=== PATIENT | female | born 1945 | race Caucasian/White ===

== ENCOUNTER 2016-04-08 00:57 | Emergency (ER) | payer OTHER ==
[2016-04-08] MEDS ORDERED: NS 1,000 ML IV ONE (01:49)
[2016-04-08] MEDS ORDERED: ONDANSETRON 4 MG/2 ML VIAL IVP ONE (01:50)
[2016-04-08 01:54] LABS: % IMMATURE GRANULYOCYTES 0.2 % (0.0-1.1); ABSOLUTE IMMATURE GRANULOCYTES 0.01 10^3/uL (0.00-0.10); ADD DIFF? NO; ADD MORPH? NO; ADD SCAN? NO; ATYPICAL LYMPHOCYTE FLAG 0 (0-99); FRAGMENT RBC FLAG 0 (0-99); HEMATOCRIT 38.2 % (38.0-47.0); HEMOGLOBIN 12.6 g/dL (12.6-16.3); LEFT SHIFT FLG 0 (0-99); LIPEMIA HEMOLYSIS FLAG 80 (0-99); MEAN CELL HEMOGLOBIN 29.3 pg (27.9-34.1); MEAN CELL VOLUME 88.8 fL (81.5-99.8); MEAN PLATELET VOLUME 10.2 fL (8.7-11.7); PLATELET CLUMPS FLAG 0 (0-99); PLATELET COUNT 289 10^3/uL (150-400); RED CELL DISTRIBUTION WIDTH 13.4 % (11.5-15.2)
--- NOTE | 2016-04-08 01:54 | EDPHY ---
H & P Stated Complaint: adb pain, constiaption, lightheaded Source: Patient Exam Limitations: No limitations - Personal History Tetanus Vaccine Date: 2014 - Medical/Surgical History Hx Asthma: No Hx Chronic Respiratory Disease: No Hx Diabetes: No Hx Cardiac Disease: No Hx Renal Disease: No Hx Cirrhosis: No Hx Alcoholism: No Hx HIV/AIDS: No Hx Splenectomy or Spleen Trauma: No Other PMH: hx meningitis x3 (last 1999), degenerative arthritis with chronic leg and back pain/PLEURISY - Social History Smoking Status: Never smoked HPI/ROS: CHIEF COMPLAINT: Abdominal pain, constipation HISTORY OF PRESENT ILLNESS: right lower quadrant abdominal pain and constipation since yesterday morning. She has had no bowel movement in greater than 2 days. It is a moderate to severe pain in the right lower quadrant has constantly worsened. She has attempted [id number] fiber and laxatives without any improvement. She has been straining heavily for this. Nausea but no vomiting. No fever or chills. No chest pain or shortness of breath. No coughing or shortness of breath. No blood from any stools recently. No history of constipation, but she does take iron pills daily per her primary care physician. No other associated complaints or modifying factors. PREVIOUS ABDOMINAL SURGERIES/DIAGNOSES: None NPO: liquids 7:00 p.m. REVIEW OF SYSTEMS: Ten systems reviewed and are negative unless otherwise noted in the HPI EXAMINATION: General Appearance: Alert, no distress Head: normocephalic, atraumatic Eyes: Pupils equal and round, no conjunctival pallor or injection ENT, Mouth: Mucous membranes moist. Uvula midline. No lesions or edema Neck: Normal inspection, supple, non-tender Respiratory: Lungs are clear to auscultation. No wheezing, rhonchi or crackles Cardiovascular: Regular rate and rhythm no murmur. Pulses intact distally. Gastrointestinal: Abdomen is soft . Moderate tenderness in the right lower quadrant. No tympany or rigidity. Bowel sounds are decreased in all quadrants. Neurological: A&O, nonfocal, Strength is symmetric in all limbs. Skin: Warm and dry, no rash Extremities: Nontender, no pedal edema Psychiatric: Mood and affect normal DIFFERENTIAL DIAGNOSES: Including but not limited to Constipation, fecal impaction, volvulus, diverticulitis, colitis, enteritis MDM: 1:50 a.m. abdominal pain and constipation since yesterday morning. She does have right lower quadrant abdominal pain is very tender to palpation on examination. I have ordered an I-STAT that we can obtain a CT scan of the abdomen and pelvis to delineate if this is more than just constipation. Patient is comfortable with this plan, hemodynamically stable, and in no acute distress. 2:35 a.m. laboratory studies thus far are normal. CT scan has not yet been performed. I have discussed the case with Dr. Ferrer, and she will assume care the patient at this time. Please see her note for final disposition. SUPERVISION: Patient was evaluated in conjunction with the supervising physician. Please see their note for details. (Daryl Snell) Constitutional: Initial Vital Signs Temperature (C) 36.3 C 04/08/16 01:02 Heart Rate 72 04/08/16 01:02 Respiratory Rate 20 04/08/16 01:02 Blood Pressure 144/61 H 04/08/16 01:02 O2 Sat (%) 99 04/08/16 01:02 O2 Delivery Mode Room Air Allergies/Adverse Reactions: Penicillins Allergy (Intermediate, Verified 04/08/16 01:02) Other-Enter Comments Home Medications: Medication Instructions Recorded Amitriptyline HCl [Elavil] 25 mg PO HS 10/14/13 Aspirin [Aspirin 81mg (*)] 81 mg PO DAILY 10/14/13 Cholecalciferol Vit D3 [Vitamin D3 1,000 units PO DAILY 10/14/13 (*)] Hydrocodone/APAP 5/325 [[place] 1 - 2 each PO Q6 PRN #20 tab 01/07/15 5/325] Ondansetron Odt [Zofran Odt] 4 mg PO Q4PRN PRN #20 tab 01/07/15 Medical Decision Making ED Course/Re-evaluation: PHYSICIAN DOCUMENTATION: The patient was evaluated and managed by the Physician Virtual Assistant For [employer]. My co- signature indicates that I have reviewed this chart and I agree with the findings and plan of care as documented. I am the secondary supervising physician. CT abdomen pelvis: Marked constipation w/ fecalization of distal ileum No appendicitis, FF, abscess, or localized stranding Query celiac sprue, abnormal jejunum w/ loss of folds, wall thickening, and increased intraluminal fluid No hydro or stones Discussed with Dr. French of Radiology. 5:00 a.m.- The patient received an enema without any stool output. Thus, I went to the bedside to attempt disimpaction, however there is no stool in the rectal vault. Because of the patient's ongoing symptoms of abdominal pain, I will treat her with magnesium citrate and GoLYTELY and I will reassess her. 6:00 a.m.- The patient had a small bowel movement is actually feeling much better. Her abdominal exam has improved and she has no further tenderness. She would like to be discharged home. We will send her home with the GoLYTELY and she says that she would like to try some enemas as well. She is to return to the emergency room if she is worse in any way. (Hannah Ferrer) - Data Points Laboratory Results: Laboratory Results 04/08/16 01:40 04/08/16 01:40 04/08/16 04/08/16 04/08/16 01:40 01:40 01:40 WBC 6.65 10^3/uL 10^3/uL (3.80-9.50) RBC 4.30 10^6/uL 10^6/uL (4.18-5.33) Hgb 12.6 g/dL g/dL (12.6-16.3) Hct 38.2 % % (38.0-47.0) MCV 88.8 fL fL (81.5-99.8) MCH 29.3 pg pg (27.9-34.1) MCHC 33.0 g/dL g/dL (32.4-36.7) RDW 13.4 % % (11.5-15.2) Plt Count 289 10^3/uL 10^3/uL (150-400) MPV 10.2 fL fL (8.7-11.7) Neut % (Auto) 42.6 % % (39.3-74.2) Lymph % (Auto) 44.1 % % (15.0-45.0) [place] % (Auto) 9.2 % % (4.5-13.0) Eos % (Auto) 3.3 % % (0.6-7.6) Baso % (Auto) 0.6 % % (0.3-1.7) Nucleat RBC Rel Count 0.0 % % (0.0-0.2) Absolute Neuts (auto) 2.84 10^3/uL 10^3/uL (1.70-6.50) Absolute Lymphs (auto) 2.93 10^3/uL 10^3/uL (1.00-3.00) Absolute Monos (auto) 0.61 10^3/uL 10^3/uL (0.30-0.80) Absolute Eos (auto) 0.22 10^3/uL 10^3/uL (0.03-0.40) Absolute Basos (auto) 0.04 10^3/uL 10^3/uL (0.02-0.10) Absolute Nucleated RBC 0.00 10^3/uL 10^3/uL (0-0.01) Immature Gran % 0.2 % % (0.0-1.1) Immature Gran # 0.01 10^3/uL 10^3/uL (0.00-0.10) PT 12.4 SEC SEC (12.0-15.0) INR 0.93 (0.83-1.16) APTT 26.6 SEC SEC (23.0-38.0) Sodium 138 mEq/L mEq/L (134-144) Potassium 4.0 mEq/L mEq/L (3.5-5.2) Chloride 105 mEq/L mEq/L (97-110) Carbon Dioxide 24 mEq/l mEq/l (22-31) Anion Gap 9 mEq/L mEq/L (8-16) BUN 18 mg/dL mg/dL (7-23) Creatinine 0.8 mg/dL mg/dL (0.6-1.0) Estimated GFR > 60 Glucose 94 mg/dL mg/dL (70-100) Calcium 9.7 mg/dL mg/dL (8.5-10.4) Total Bilirubin 0.6 mg/dL mg/dL (0.1-1.4) Conjugated Bilirubin 0.5 mg/dL mg/dL (0.0-0.5) Unconjugated Bilirubin 0.1 mg/dL mg/dL (0.0-1.1) AST 26 IU/L IU/L (14-46) ALT 26 IU/L IU/L (9-52) Alkaline Phosphatase 163 IU/L H IU/L (38-126) Total Protein 7.1 g/dL g/dL (6.3-8.2) Albumin 4.3 g/dL g/dL (3.5-5.0) Lipase 185.0 IU/L IU/L (23-300) Medications Given: Discontinued Medications Fentanyl (Sublimaze) 50 mcg IVP EDNOW ONE Stop: 04/08/16 03:31 Last Admin: 04/08/16 06:00 Dose: Not Given Sodium Chloride (Ns) 1,000 mls @ 0 mls/hr IV ONCE ONE PRN Reason: Wide Open Stop: 04/08/16 01:50 Last Admin: 04/08/16 02:11 Dose: 1,000 mls Magnesium Citrate (Magnesium Citrate) 300 ml PO ONCE ONE Stop: 04/08/16 03:52 Last Admin: 04/08/16 03:59 Dose: 300 ml Morphine Sulfate (Morphine) 4 mg IVP EDNOW ONE Stop: 04/08/16 01:51 Last Admin: 04/08/16 02:12 Dose: 4 mg Ondansetron HCl (Zofran) 4 mg IVP EDNOW ONE Stop: 04/08/16 01:51 Last Admin: 04/08/16 02:12 Dose: 4 mg Polyethylene Glycol/Electrolytes (Golytely) 4,000 ml PO ONCE ONE Stop: 04/08/16 03:52 Last Admin: 04/08/16 04:00 Dose: 4,000 ml Departure - Departure Disposition: Home, Routine, Self-Care Clinical Impression: Abdominal pain Qualifiers: Abdominal location: right lower quadrant Qualified Code(s): R10.31 - Right lower quadrant pain Constipation Qualifiers: Constipation type: drug induced constipation Qualified Code(s): K59.03 - Drug induced constipation Condition: Good Instructions: Constipation (ED), Fleet Enema (ED) Referrals: Anne Abad MD [Primary Care Provider] - As per Instructions
[2016-04-08] MEDS ORDERED: IOPAMIDOL (ISOVUE-300) 100 ML BTL IV ONE (02:05)
[2016-04-08 02:11] LABS: ALANINE AMINOTRANSFERASE 26 IU/L (9-52); ALBUMIN 4.3 g/dL (3.5-5.0); ALKALINE PHOSPHATASE 163 IU/L (38-126); ANION GAP 9 mEq/L (8-16); ASPARTATE AMINOTRANSFERASE 26 IU/L (14-46); BILIRUBIN,TOTAL 0.6 mg/dL (0.1-1.4); BILIRUBIN-CONJUGATED 0.5 mg/dL (0.0-0.5); BILIRUBIN-UNCONJUGATED 0.1 mg/dL (0.0-1.1); CALCIUM 9.7 mg/dL (8.5-10.4); CARBON DIOXIDE 24 mEq/l (22-31); CHLORIDE 105 mEq/L (97-110); CREATININE 0.8 mg/dL (0.6-1.0); GLOMERULAR FILTRATION RATE > 60; GLUCOSE 94 mg/dL (70-100); SODIUM 138 mEq/L (134-144); TOTAL PROTEIN 7.1 g/dL (6.3-8.2)
[2016-04-08 02:29] LABS: INR 0.93 (0.83-1.16); PROTIME(PATIENT) 12.4 SEC (12.0-15.0)
[2016-04-08 02:30] LABS: APTT 26.6 SEC (23.0-38.0)
[2016-04-08] MEDS ORDERED: fentaNYL 100 MCG/2 ML INJ IVP ONE (03:30)
[2016-04-08] MEDS ORDERED: MAGNESIUM CITRATE 300 ML BOTTLE ONE (03:51)
[2016-04-08] MEDS ORDERED: GOLYTELY 4000 ML BTL PO ONE (03:51)
[2016-04-08] MEDS ORDERED: MAGNESIUM CITRATE 300 ML BOTTLE PO ONE (03:51)
[2016-04-08 04:01] VITALS: RESP 16
[2016-04-08 06:16] VITALS: BP 126/71; PULSE 73; TEMP 98.6; O2SAT 95
== END 2016-04-08 06:14 | disposition home or self-care (01) ==
DX: K59.03 Drug induced constipation (principal); Z79.82 Long term (current) use of aspirin
CPT/HCPCS: 74177; 96361; 96374; 96375; 99285; J2405; J3010; Q9967

== ENCOUNTER 2016-09-10 16:07 | Emergency (ER) | payer OTHER ==
[2016-09-10 16:24] VITALS: TEMP 98.6
[2016-09-10] MEDS ORDERED: IPRATROPIUM/ALBUTEROL 3 ML DEYVIAL IH ONE (18:13)
--- NOTE | 2016-09-10 18:15 | EDPHY ---
HPI/HX/ROS/PE/MDM Narrative: CHIEF COMPLAINT: Cough HPI: This patient is a 70 year old female arriving with her son complaining of cough and headache onset yesterday. She has had a productive cough with associated chest pain. She states she has been wheezing, but no longer has her Albuterol inhaler. She endorses subjective fever. No abdominal pain, vomiting, diarrhea, or other associated symptoms. REVIEW OF SYSTEMS: Aside from elements discussed in the HPI, a comprehensive 10-point review of systems was reviewed and is negative. PMH: Asthma. Anemia. SOCIAL HISTORY: Son at bedside. Primary care provider: Dr. Abad. PHYSICAL EXAM: General:Patient is alert, in no acute distress. ENT:Eyes are normal to inspection. ENT inspection normal. Neck: Normal inspection. Full range of motion. Respiratory:No respiratory distress. Breath sounds normal bilaterally. Cardiovascular: Regular rate and rhythm. Strong peripheral pulses. Normal cap refill. Abdomen:The abdomen is nontender to palpation. There are no peritoneal signs. There are normal bowel sounds. Back: Normal to inspection. No tenderness to palpation. Skin: Normal color. No rash. Warm and dry. Extremities: Normal appearance. Full range of motion. Neuro: Oriented x3. Normal motor function. Normal sensory function. Portions of this note were transcribed by an ED scribe. I personally performed the history, physical exam, and medical decision making; and confirm the accuracy of the information in the transcribed note. ED Course: 70 year old female presents with productive cough and headache onset yesterday. Administered DuoNeb for symptom relief. Plan for chest x-ray, respiratory pathogen PCR. Chest x-ray shows evidence of bronchitis, no pneumonia. Reassessed patient. She is feeling better following DuoNeb administration. Plan to discharge home in good condition with prescription for Albuterol inhaler. She will follow up with her primary care provider for continued management. Return precautions discussed. The patient is comfortable with this plan. MDM: This patient presents with mild cough and wheeze. She is not febrile nor hypoxic. CXR is negative for PNA. She is requesting an inhaler and would like to go home. I think this is a reasonable plan. - Data Points Imaging Results: Imaging Impressions Chest X-Ray 09/10/16 17:40 Impression: 1. Bronchitis/airways disease. 2. No definite pneumonia. Imaging: I viewed and interpreted images myself Medications Given: Discontinued Medications Albuterol/Ipratropium (Duoneb) 3 ml IH EDNOW ONE Stop: 09/10/16 18:14 Last Admin: 09/10/16 18:31 Dose: 3 ml General Time Seen by Provider: 09/10/16 17:35 Initial Vital Signs: Initial Vital Signs Temperature (C) 37 C 09/10/16 16:19 Heart Rate 101 H 09/10/16 16:19 Respiratory Rate 18 09/10/16 16:19 Blood Pressure 131/54 H 09/10/16 16:19 O2 Sat (%) 95 09/10/16 16:19 O2 Delivery Mode Room Air Allergies/Adverse Reactions: Penicillins Allergy (Intermediate, Verified 09/10/16 16:19) Other-Enter Comments Home Medications: Medication Instructions Recorded Amitriptyline HCl [Elavil] 25 mg PO HS 10/14/13 Aspirin [Aspirin 81mg (*)] 81 mg PO DAILY 10/14/13 Departure - Departure Disposition: Home, Routine, Self-Care Clinical Impression: Acute bronchitis Condition: Good Instructions: Acute Bronchitis (ED) Additional Instructions: 1. Follow up with your primary care provider for symptoms unresolved in the next few days. 2. Return to the Emergency Department for fever, increased difficulty breathing , or other worsening of condition. Referrals: Anne Abad MD [Primary Care Provider] - As per Instructions Report Scribed for: Elieser Rios Report Scribed by: Esperanza Rausch Date of Report: 09/10/16 Time of Report: 19:47
[2016-09-10] MEDS ORDERED: ALBUTEROL INH PREPACK MDI TAKEHOME ONE (19:26)
[2016-09-10] MEDS ORDERED: IBUPROFEN 200 MG TAB PO ONE (19:27)
[2016-09-10 19:58] VITALS: BP 132/62; PULSE 88; RESP 20; O2SAT 94
== END 2016-09-10 19:58 | disposition home or self-care (01) ==
DX: J20.9 Acute bronchitis, unspecified (principal); J45.909 Unspecified asthma, uncomplicated

== ENCOUNTER → 2016-10-18 | Outpatient (CLI) | payer OTHER | LOC: GIMAGING 13:50 | PROVIDERS: ATTEND Family Medicine | DX: M54.9 Dorsalgia, unspecified (principal); Z98.1 Arthrodesis status | CPT/HCPCS: 72100-PO ==

== ENCOUNTER → 2017-02-13 | Outpatient (CLI) | payer OTHER | LOC: FIMAGING 16:14 | PROVIDERS: ATTEND Family Medicine | DX: Z12.31 Encounter for screening mammogram for malignant neoplasm of breast (principal) | CPT/HCPCS: G0202 ==

== ENCOUNTER 2017-08-12 21:52 | Emergency (ER) | payer OTHER ==
--- NOTE | 2017-08-12 22:29 | EDPHY ---
H & P Stated Complaint: abd pain with constipation x 4 days Time Seen by Provider: 08/12/17 22:29 HPI/ROS: HPI CHIEF COMPLAINT: Constipation HISTORY OF PRESENT ILLNESS: Patient is a 71-year-old female she presents emergency room with abdominal discomfort rectal pain. Patient reports that she has not had a bowel movement 4 days. Patient reports that at times she does suffer from constipation. She has been trying to have a bowel movement for the past 4 days. She has used multiple enemas without success. She presents emergency room by private vehicle stating that she has been straining to use the bathroom but unable to do so. She denies any fever, denies vomiting, denies upper abdominal pain. She denies chest pain or shortness of breath. Past Medical History: Anxiety, constipation Past Surgical History: No recent surgical history Social History: Denies daily use of drugs alcohol tobacco. Family History: Noncontributory ROS REVIEW OF SYSTEMS: A comprehensive 10 point review of systems is otherwise negative aside from elements mentioned in the history of present illness. Exam Constitutional nontoxic appearing, no acute distress, triage nursing summary reviewed, vital signs reviewed, awake/alert. Eyes normal conjunctivae and sclera, EOMI, PERRLA. HENT normal inspection, atraumatic, moist mucus membranes, no epistaxis, neck supple/ no meningismus, no raccoon eyes. Respiratory clear to auscultation bilaterally, normal breath sounds, no respiratory distress, no wheezing. Cardiovascular rate normal, regular rhythm, no murmur, no edema, distal pulses normal. Gastrointestinal no significant tenderness on exam, no rebound, no guarding, hypoactive bowel sounds no distension, no pulsatile mass. Genitourinary no CVA tenderness. Musculoskeletal no midline vertebral tenderness, full range of motion, no calf swelling, no tenderness of extremities, no meningismus, good pulses, neurovascularly intact. Skin pink, warm, & dry, no rash, skin atraumatic. Neurologic awake, alert and oriented x 3, AAOx3, moves all 4 extremities equally, motor intact, sensory intact, CN II-XII intact, normal cerebellar, normal vision, normal speech. Psychiatric normal mood/affect. Heme/Lymph/Immune no lymphadenopathy. Differential diagnosis includes but is not limited to and in no particular order: Bowel obstruction, appendicitis, gallbladder disease, diverticulitis, colitis, enteritis, perforated viscus, gastritis, GERD, esophagitis, urinary tract infection, pyelonephritis, kidney stones Medical Decision Making: Plan for this patient KUB to evaluate bowel gas pattern and stool burden. If this shows significant constipation will attempt an enema here in the emergency room to see if this relieves her. Re-evaluation: KUB reviewed. This shows moderate constipation. No free air. No evidence of bowel gas obstructive process. 2311: Will give soapsuds enema and re-evaluate. 1242: Patient re-evaluated she was able to have a large bowel movement here in the emergency room is feeling much better this was after a soapsuds enema. Abdomen is soft nontender she is not vomiting she feels much better. Return precautions discussed with her she understands return emergency room she develops worsening abdominal pain fever vomiting. MiraLax prescription provided. Source: Patient - Personal History Current Tetanus/Diphtheria Vaccine: Yes Current Tetanus Diphtheria and Acellular Pertussis (TDAP): Yes Tetanus Vaccine Date: 2014 - Medical/Surgical History Hx Asthma: No Hx Chronic Respiratory Disease: Yes Hx Diabetes: No Hx Cardiac Disease: No Hx Renal Disease: No Hx Cirrhosis: No Hx Alcoholism: No Hx HIV/AIDS: No Hx Splenectomy or Spleen Trauma: No Other PMH: hx meningitis x3 (last 1999), degenerative arthritis with chronic leg and back pain/PLEURISY - Social History Smoking Status: Never smoked Constitutional: Initial Vital Signs Temperature (C) 36.4 C 08/12/17 21:59 Heart Rate 83 08/12/17 21:59 Respiratory Rate 18 08/12/17 21:59 Blood Pressure 117/89 H 08/12/17 21:59 O2 Sat (%) 100 08/12/17 21:59 O2 Delivery Mode Room Air Allergies/Adverse Reactions: Penicillins Allergy (Intermediate, Verified 09/10/16 16:19) Other-Enter Comments Home Medications: Medication Instructions Recorded Amitriptyline HCl [Elavil] 25 mg PO HS 10/14/13 Aspirin [Aspirin 81mg (*)] 81 mg PO DAILY 10/14/13 CLONAZEPAM 08/12/17 Polyethylene Glycol 3350 [Miralax 17 gm PO DAILY #4 pkt 08/13/17 17 gm (*)] Medical Decision Making - Diagnostics Imaging Results: Imaging Impressions Abdomen X-Ray 08/12/17 22:29 Impression: Moderate constipation. Departure - Departure Disposition: Home, Routine, Self-Care Clinical Impression: Constipation Qualifiers: Constipation type: unspecified constipation type Qualified Code(s): K59.00 - Constipation, unspecified Condition: Good Instructions: Constipation (ED) Additional Instructions: 1. Return emergency room if he develops worsening abdominal pain fever vomiting. Referrals: NONE *PRIMARY CARE P,. [Primary Care Provider] - As per Instructions Prescriptions: Polyethylene Glycol 3350 [Miralax 17 gm (*)] 17 gm PO DAILY #4 pkt
[2017-08-13 01:00] VITALS: BP 122/75
== END 2017-08-13 00:56 | disposition home or self-care (01) ==
DX: K59.00 Constipation, unspecified (principal); Z79.82 Long term (current) use of aspirin

== ENCOUNTER 2018-01-06 17:22 | Emergency (ER) | payer OTHER ==
[2018-01-06] MEDS ORDERED: NS 1,000 ML IV ONE (17:40)
[2018-01-06] MEDS ORDERED: ONDANSETRON 4 MG/2 ML VIAL IVP ONE (17:40)
--- NOTE | 2018-01-06 17:40 | EDPHY ---
HPI/HX/ROS/PE/MDM Narrative: CHIEF COMPLAINT: Dizziness, nausea HISTORY OF PRESENT ILLNESS: The patient is a 72 y/o female complaining of acute onset dizziness and nausea while sitting and drinking coffee today with her friend. She felt normal yesterday and denies any recent illness. Dizziness is aggravated by turning her head and opening her eyes. She says, "I thought maybe it could be vertigo because I've had that before." She denies any fall or trauma related to these symptoms. She does have a slight headache and feels mildly off balance. Symptoms do not feel like her prior meningitis episodes. No history of stroke, diabetes, cardiac disease, arrhythmias, respiratory disease, kidney disease. No fever, chills, cough, rhinorrhea, sore throat, ringing in ears, photophobia, chest pain, shortness of breath, palpitations, abdominal pain, vomiting, diarrhea, urinary complaints, lightheadedness. REVIEW OF SYSTEMS: Aside from elements discussed in the HPI, a comprehensive 10-point review of systems was reviewed and is negative. PAST MEDICAL HISTORY: Meningitis x3; back surgery; memory loss; C-sections x2 ; tonsillectomy SOCIAL HISTORY: Nonsmoker. No alcohol use. VITAL SIGNS: Reviewed by me GENERAL: Well-developed, well-nourished, resting comfortably in no respiratory distress. HEENT: Atraumatic. Eyes: No icterus, no injection. Extraocular movements aggravate dizziness. No nystagmus. Pupils equal round reactive to light. Mouth: moist mucous membranes. No erythema or lesions. Neck: supple with no adenopathy. Negative Kernig's. Negative Brudzinski's LUNGS: Clear to auscultation bilaterally, no wheezes, rhonchi or rales. CARDIAC: Regular rate and rhythm, no rubs, murmurs or gallops. ABDOMEN: Soft, nontender, nondistended, bowel sounds normal. BACK: No CVA tenderness. EXTREMITIES: No trauma. No edema. Range of motion is normal throughout. NEURO: Alert and oriented, grossly nonfocal. Cranial nerves 2-12 are intact. Normal motor strength. Normal sensation. Slight difficulty with [id number] , worse on left. Nonfocal cranial nerves. SKIN: Warm and dry, no rash. PSYCHIATRIC: Normal mentation, no agitation. Portions of this note were transcribed by a medical van driver. I personally performed a history, physical exam, medical decision making, and confirmed accuracy of information the transcribed note. ED Course: This is a 72 y/o female who presents with a few-hour history of acute onset dizziness and nausea that feels similar to her prior episodes of vertigo. Dizziness elicited by movement of her eyes during exam. She has slight difficulty with [id number], but otherwise has a nonfocal neuro exam. Plan for IV, labs, EKG, head CT, and symptomatic management. 4mg IV Zofran, 25mg PO Meclizine, 1L IV NS. The 12 lead EKG was interpreted by myself. Sinus mechanism. See hard copy and/ or "tracemaster" electronic copy for interpretation. Head CT: negative. POC troponin: 0.00. Remainder of the patient's laboratory evaluation is largely unremarkable. Patient re-examined at 7:00 p.m.. She reports that her dizziness is slightly better with the meclizine but her nausea still persistent. Her family is now in the room. They describe and admission several years ago for intractable vertigo at which time the patient had a brain MRI as well as CT A's. These were negative for any acute findings. On review of the records the patient was felt to have a vertiginous migraine and improved to with Decadron. Patient was given Valium 2.5 mg as well as Phenergan for persistent nausea. She also received Decadron 8 mg IV. Family also reports that the patient typically does not drink very much water, drinking only coffee. She did receive a L of normal saline and reports that she is feeling better with that. On re-examination the patient reports feeling improved. She was discharged with instructions regarding follow-up, reasons to return, and was given instructions to use meclizine on a regular basis for the next several days. I also encouraged her to drink plenty of fluid. MDM: Differential diagnosis of the patient's dizziness was considered including but not limited to peripheral and central causes of vertigo, cardiac arrhythmias, cardiac ischemia, electrolyte disturbances, neurologic causes, orthostatic causes including dehydration, and blood loss. - Data Points Imaging Results: Impression: 1. Stable normal brain. 2. Degenerative cervical spondylosis. Results called to Dr. Lorraine Gorman at 6:02 PM Imaging: Discussed imaging studies w/ house calls nurse practitioner Radiologist Laboratory Results: Laboratory Results 01/06/18 17:35 01/06/18 17:35 Medications Given: Discontinued Medications Dexamethasone (Decadron Injection) 6 mg IVP EDNOW ONE Stop: 01/06/18 19:10 Last Admin: 01/06/18 19:21 Dose: 6 mg Diazepam (Valium) 2.5 mg IVP EDNOW ONE Stop: 01/06/18 19:10 Last Admin: 01/06/18 19:24 Dose: 2.5 mg Sodium Chloride (Ns) 1,000 mls @ 0 mls/hr IV ONCE ONE; Wide Open PRN Reason: Protocol Stop: 01/06/18 17:41 Last Admin: 01/06/18 17:47 Dose: 1,000 mls Meclizine HCl (Meclizine Hcl) 25 mg PO EDNOW ONE Stop: 01/06/18 17:43 Last Admin: 01/06/18 17:45 Dose: 25 mg Ondansetron HCl (Zofran) 4 mg IVP EDNOW ONE Stop: 01/06/18 17:41 Last Admin: 01/06/18 17:45 Dose: 4 mg Promethazine HCl (Phenergan) 6.25 mg IVP ONCE ONE Stop: 01/06/18 19:10 Last Admin: 01/06/18 19:23 Dose: 6.25 mg Point of Care Test Results: Chemistry 01/06/18 17:42 POC Troponin I 0.00 ng/mL ng/mL (0.00-0.08) General Time Seen by Provider: 01/06/18 17:28 Initial Vital Signs: Initial Vital Signs Temperature (C) 36.8 C 01/06/18 17:23 Heart Rate 94 01/06/18 17:23 Respiratory Rate 16 01/06/18 17:23 Blood Pressure 157/68 H 01/06/18 17:23 O2 Sat (%) 96 01/06/18 17:23 O2 Delivery Mode Room Air Allergies/Adverse Reactions: Penicillins Allergy (Intermediate, Verified 09/10/16 16:19) Other-Enter Comments Home Medications: Medication Instructions Recorded Amitriptyline HCl [Elavil] 25 mg PO HS 10/14/13 Aspirin [Aspirin 81mg (*)] 81 mg PO DAILY 10/14/13 CLONAZEPAM 08/12/17 Polyethylene Glycol 3350 [Miralax 17 gm PO DAILY #4 pkt 08/13/17 17 gm (*)] Meclizine HCl [Meclizine HCl 25 mg 25 mg PO TID PRN #20 tab 01/06/18 (RX,OTC)] Departure - Departure Disposition: Home, Routine, Self-Care Clinical Impression: Vertigo, Dizziness Condition: Good Instructions: Vertigo (ED), Dizziness (ED) Additional Instructions: Please take the meclizine as directed. 25 mg by mouth up to 3 times a day. Please stay well-hydrated. This means drinking plenty of water and avoiding excessive coffee or other caffeine containing drinks. Okay to use Tylenol or ibuprofen as needed for headache. Please follow up with her primary care physician if you're not improving as expected. Referrals: Anne Abad MD [Primary Care Provider] - As per Instructions Prescriptions: Meclizine HCl [Meclizine HCl 25 mg (RX,OTC)] 25 mg PO TID PRN #20 tab PRN Reason: Dizziness Report Scribed for: Lorraine Gorman Report Scribed by: Mela Casillas Date of Report: 01/06/18 Time of Report: 17:40
[2018-01-06] MEDS ORDERED: MECLIZINE HCL 25 MG TAB PO ONE (17:42)
[2018-01-06 17:53] LABS: PLATELET COUNT 252 10^3/uL (150-400)
[2018-01-06] MEDS ORDERED: DIAZEPAM 5 MG/ML 1 ML SYR IVP ONE (19:09)
[2018-01-06] MEDS ORDERED: PROMETHAZINE HCL 25 MG/ML INJ IVP ONE (19:09)
[2018-01-06] MEDS ORDERED: DEXAMETHASONE 10 MG/ML VIAL IVP ONE (19:09)
--- NOTE | 2018-01-06 19:57 | CPEKG ---
Test Reason : OPEN Blood Pressure : / mmHG Vent. Rate : 058 BPM Atrial Rate : 057 BPM P-R Int : 154 ms QRS Dur : 090 ms QT Int : 447 ms P-R-T Axes : 019 075 027 degrees QTc Int : 440 ms Sinus rhythm Consider left ventricular hypertrophy Confirmed by Lorraine Gorman ([id number]) on 01/06/2018 7:57:03 PM Referred By: Confirmed By:Lorraine Gorman
[2018-01-06 20:18] VITALS: BP 114/51
== END 2018-01-06 20:18 | disposition home or self-care (01) ==
DX: R42 Dizziness and giddiness (principal); R11.0 Nausea; R51 Headache; M47.9 Spondylosis, unspecified
CPT/HCPCS: 70450; 93005; 96374; 96375; 99285; J1100; J2405; J2550; J3360; 84484-PO

== ENCOUNTER 2018-03-20 01:45 | Observation (INO) | payer OTHER ==
[2018-03-20] MEDS ORDERED: NS 1,000 ML IV ONE (01:58)
[2018-03-20] MEDS ORDERED: NITROGLYCERIN 0.4 MG BTL SL ONE (02:04)
[2018-03-20] MEDS ORDERED: ASPIRIN EC 325 MG TAB PO ONE (02:04)
--- NOTE | 2018-03-20 02:04 | EDPHY ---
H & P Stated Complaint: CP/tightness 0, dizzy Time Seen by Provider: 03/20/18 01:59 HPI/ROS: HPI CHIEF COMPLAINT: Chest tightness. HISTORY OF PRESENT ILLNESS: Very pleasant 72-year-old female presents emergency room with chest tightness. She states started at 10:30 p.m. It is now 2:00 a.m.. Patient presents emergency room with substernal chest pressure. It does not radiate anywhere. This started at 10:30 a.m. When she arrived home from [facility] she states she sat down in a recliner developed chest pressure. No pleuritic pain no nausea no shortness of breath. Has never had this before. Denies any history of cardiovascular disease including denies history of coronary disease, CVA or hypertension. Patient arrived to the emergency room by private vehicle complaining of substernal chest pressure. Past Medical History: History of vertigo, depression Past Surgical History: No recent surgery Social History: Denies drugs alcohol tobacco. Family History: Noncontributory ROS REVIEW OF SYSTEMS: 10 Systems were reviewed and negative with the exception of the elements mentioned in the history of present illness. Exam Constitutional triage nursing summary reviewed, vital signs reviewed, awake/ alert. Eyes normal conjunctivae and sclera, EOMI, PERRLA. HENT normal inspection, atraumatic, moist mucus membranes, no epistaxis, neck supple/ no meningismus, no raccoon eyes. Respiratory clear to auscultation bilaterally, normal breath sounds, no respiratory distress, no wheezing. Cardiovascular rate normal, regular rhythm, no murmur, no edema, distal pulses normal. Gastrointestinal soft, non-tender, no rebound, no guarding, normal bowel sounds, no distension, no pulsatile mass. Genitourinary no CVA tenderness. Musculoskeletal no midline vertebral tenderness, full range of motion, no calf swelling, no tenderness of extremities, no meningismus, good pulses, neurovascularly intact. Skin pink, warm, & dry, no rash, skin atraumatic. Neurologic awake, alert and oriented x 3, AAOx3, moves all 4 extremities equally, motor intact, sensory intact, CN II-XII intact, normal cerebellar, normal vision, normal speech. Psychiatric normal mood/affect. Heme/Lymph/Immune no lymphadenopathy. Differential Diagnosis: Differential diagnosis includes but is not limited to: ACS, atypical chest pain, pneumothorax, pneumonia, pulmonary embolism, aortic dissection, congestive heart failure, tumor, musculoskeletal pain, esophageal pain, GERD, peptic ulcer disease, pancreatitis Medical Decision Making: Plan for this patient IV establishment with full ekg monitor obtain EKG, troponin, give full-dose aspirin, nitroglycerin to see if this improves her chest discomfort. Rule out acute coronary syndrome. Re-evaluation: EKG interpretation by me on record in [employer] system. Impression time of EKG 1:56 a.m., sinus rhythm rate of [address] depression seen in to [address] elevation. 0252: Patient re-evaluated in no acute distress resting comfortably. Plan for repeat EKG. Patient's troponin is noted be negative ED x-ray chest one view interpreted by myself negative for acute cardiopulmonary disease. The patient's EKG does have some ST depression Plan for hospital admission for chest discomfort. Will consult the hospitalist service Dr. Mendieta EKG interpretation by me on record in [employer] system. Impression time of EKG 3:07 a.m. Sinus rhythm rate of 73, minimal ST depression diffuse leads. No ST elevation. Source: Patient - Personal History Current Tetanus/Diphtheria Vaccine: Yes Current Tetanus Diphtheria and Acellular Pertussis (TDAP): Yes Tetanus Vaccine Date: 2014 - Medical/Surgical History Hx Asthma: No Hx Chronic Respiratory Disease: Yes Hx Diabetes: No Hx Cardiac Disease: No Hx Renal Disease: No Hx Cirrhosis: No Hx Alcoholism: No Hx HIV/AIDS: No Hx Splenectomy or Spleen Trauma: No Other PMH: hx meningitis x3 (last 1999), degenerative arthritis with chronic leg and back pain/PLEURISY - Social History Smoking Status: Never smoked Constitutional: Initial Vital Signs Heart Rate 77 03/20/18 01:48 Respiratory Rate 20 03/20/18 01:48 Blood Pressure 144/63 H 03/20/18 01:48 O2 Sat (%) 97 03/20/18 01:48 O2 Delivery Mode Room Air O2 (L/minute) 2 Allergies/Adverse Reactions: Penicillins Allergy (Intermediate, Verified 03/20/18 01:46) Other-Enter Comments Home Medications: Medication Instructions Recorded Aspirin [Aspirin 81mg (*)] 81 mg PO DAILY 10/14/13 Amitriptyline HCl [Elavil] 25 mg PO HS 03/20/18 Citalopram [CeleXA 20 MG] 20 mg PO DAILY 03/20/18 Donepezil HCl [Aricept 5 MG (*)] 5 mg PO HS 03/20/18 Medical Decision Making - Data Points Laboratory Results: Laboratory Results 03/20/18 02:00 03/20/18 02:00 Medications Given: Discontinued Medications Al Hydroxide/Mg Hydroxide (Maalox Susp) 30 ml PO ONCE ONE Stop: 03/20/18 03:22 Last Admin: 03/20/18 03:26 Dose: 30 ml Aspirin Buffered (Aspirin Ec) 325 mg PO EDNOW ONE Stop: 03/20/18 02:05 Last Admin: 03/20/18 02:13 Dose: 324 mg Citalopram Hydrobromide (Celexa) 20 mg PO DAILY [facility] Stop: 09/16/18 12:29 Last Admin: 03/20/18 12:49 Dose: 20 mg Enoxaparin Sodium (Lovenox) 30 mg SC DAILY [facility] Stop: 09/16/18 08:59 Last Admin: 03/20/18 10:49 Dose: 30 mg Hyoscyamine Sulfate (Levsin, Hyomax-Sl) 0.25 mg PO ONCE ONE Stop: 03/20/18 03:22 Last Admin: 03/20/18 03:24 Dose: 0.25 mg Sodium Chloride (Ns) 1,000 mls @ 0 mls/hr IV EDNOW ONE; Wide Open PRN Reason: Protocol Stop: 03/20/18 01:59 Last Admin: 03/20/18 02:16 Dose: 1,000 mls Ketorolac Tromethamine (Toradol) 15 mg IVP ONCE ONE Stop: 03/20/18 07:40 Last Admin: 03/20/18 07:56 Dose: 15 mg Lidocaine (Lidocaine 2% Viscous) 15 ml PO ONCE ONE Stop: 03/20/18 03:22 Last Admin: 03/20/18 03:26 Dose: 15 ml Morphine Sulfate (Morphine) 4 mg IVP EDNOW ONE Stop: 03/20/18 02:52 Last Admin: 03/20/18 02:57 Dose: 4 mg Nitroglycerin (Nitrostat) 0.4 mg SL EDNOW ONE Stop: 03/20/18 02:05 Last Admin: 03/20/18 02:19 Dose: 0.4 mg Nitroglycerin (Nitrostat) 0.4 mg SL Q5M PRN PRN Reason: Chest Pain Stop: 09/16/18 03:04 Last Admin: 03/20/18 06:05 Dose: 0.4 mg Ondansetron HCl (Zofran) 4 mg IVP EDNOW ONE Stop: 03/20/18 02:52 Last Admin: 03/20/18 02:57 Dose: 4 mg Ondansetron HCl (Zofran Odt) 4 mg PO Q4HRS PRN PRN Reason: Nausea/Vomiting, Use 1st Stop: 09/16/18 03:03 Last Admin: 03/20/18 16:04 Dose: 4 mg Point of Care Test Results: Chemistry 03/20/18 02:01 POC Troponin I 0.01 ng/mL ng/mL (0.00-0.08) Departure - Departure Disposition: [facility] Inpatient Acute Clinical Impression: Chest pressure Condition: Good
[2018-03-20 02:10] LABS: PLATELET COUNT 240 10^3/uL (150-400)
[2018-03-20] MEDS ORDERED: ASPIRIN 81 MG CHEWABLE TAB ONE (02:10)
[2018-03-20 02:17] LABS: INR 0.86 (0.83-1.16); PROTIME(PATIENT) 11.9 SEC (12.0-15.0)
[2018-03-20] MEDS ORDERED: ONDANSETRON 4 MG/2 ML VIAL IVP ONE (02:51)
[2018-03-20] MEDS ORDERED: ONDANSETRON 4 MG/2 ML VIAL IVP PRN (03:04)
[2018-03-20] MEDS ORDERED: ACETAMINOPHEN 325 MG TAB PO PRN (03:04)
[2018-03-20] MEDS ORDERED: NITROGLYCERIN 0.4 MG BTL SL PRN (03:05)
[2018-03-20] MEDS ORDERED: MAG HYDROX/AL HYDROX/SIMETH 30 ML UDCUP ONE (03:21)
[2018-03-20] MEDS ORDERED: MAG HYDROX/AL HYDROX/SIMETH 30 ML UDCUP PO ONE (03:21)
[2018-03-20] MEDS ORDERED: LIDOCAINE 2% VISCOUS 15 ML UDCUP PO ONE (03:21)
[2018-03-20] MEDS ORDERED: LIDOCAINE 2% VISCOUS 15 ML UDCUP ONE (03:21)
[2018-03-20] MEDS ORDERED: HYOSCYAMINE SULFATE 0.125 MG TAB PO ONE (03:21)
[2018-03-20] MEDS ORDERED: HYOSCYAMINE SULFATE 0.125 MG TAB ONE (03:22)
--- NOTE | 2018-03-20 03:27 | PDGENHP ---
History and Physical - Chief Complaint Chest pain - History of Present Illness 72 yo F w/ hx of depression and anxiety presents with chest pain. She tells me she started to have moderate to severe chest pain around 10 PM. The pain started at rest and is associated with SOB, mild diaphoresis, and L arm numbness. She ate a burrito around 8 PM. She denies similar pain in the past. She has no personal history of CAD but both of her parents had [place]'s. She quit smoking tobacco about 15 years ago. Work-up in the ED is benign so far but she continues to have significant chest pain despite nitroglycerin, Zofran, and morphine. She is being admitted for further work-up. Case discussed with ED physician Dr. Maldonado; records reviewed and summarized above. History Information - Allergies/Home Medication List Allergies/Adverse Reactions: Penicillins Allergy (Intermediate, Verified 03/20/18 01:46) Other-Enter Comments Home Medications: Amitriptyline HCl [Elavil] 25 mg PO HS 10/14/13 [Last Taken Unknown] Aspirin [Aspirin 81mg (*)] 81 mg PO DAILY 10/14/13 [Last Taken Unknown] CLONAZEPAM 08/12/17 [Last Taken Unknown] I have personally reviewed and updated: family history, medical history - Past Medical History Additional medical history: Depression. Anxiety - Surgical History Additional surgical history: Foot surgery - Family History Positive for: diabetes type II, CAD - Social History Smoking Status: Former smoker Review of Systems Review of Systems: ROS: 10pt was reviewed & negative except for what was stated in HPI & below Physical Exam Physical Exam: Temp Pulse Resp BP Pulse Ox 76 18 135/75 H 99 03/20/18 03:15 03/20/18 03:15 03/20/18 03:15 03/20/18 03:15 O2 (L/minute) 2 Constitutional: appears nourished, uncomfortable Eyes: PERRL, EOMI Ears, Nose, Mouth, Throat: moist mucous membranes, no oral mucosal ulcers Cardiovascular: regular rate and rhythym, no murmur, rub, or gallop Respiratory: no respiratory distress, clear to auscultation Gastrointestinal: normoactive bowel sounds, soft, non-tender abdomen Skin: warm, normal color Musculoskeletal: full muscle strength, no muscle tenderness Neurologic: AAOx3, CN II-XII Intact Psychiatric: interacting appropriately, not anxious Lab Data & Imaging Review 03/20/18 02:00 03/20/18 02:00 WBC 8.09 10^3/uL (3.80-9.50) 03/20/18 02:00 RBC 4.74 10^6/uL (4.18-5.33) 03/20/18 02:00 Hgb 14.1 g/dL (12.6-16.3) 03/20/18 02:00 Hct 42.1 % (38.0-47.0) 03/20/18 02:00 MCV 88.8 fL (81.5-99.8) 03/20/18 02:00 MCH 29.7 pg (27.9-34.1) 03/20/18 02:00 MCHC 33.5 g/dL (32.4-36.7) 03/20/18 02:00 RDW 14.2 % (11.5-15.2) 03/20/18 02:00 Plt Count 240 10^3/uL (150-400) 03/20/18 02:00 MPV 9.8 fL (8.7-11.7) 03/20/18 02:00 Neut % (Auto) 50.8 % (39.3-74.2) 03/20/18 02:00 Lymph % (Auto) 35.5 % (15.0-45.0) 03/20/18 02:00 [place] % (Auto) 10.1 % (4.5-13.0) 03/20/18 02:00 Eos % (Auto) 2.8 % (0.6-7.6) 03/20/18 02:00 Baso % (Auto) 0.4 % (0.3-1.7) 03/20/18 02:00 Nucleat RBC Rel Count 0.0 % (0.0-0.2) 03/20/18 02:00 Absolute Neuts (auto) 4.11 10^3/uL (1.70-6.50) 03/20/18 02:00 Absolute Lymphs (auto) 2.87 10^3/uL (1.00-3.00) 03/20/18 02:00 Absolute Monos (auto) 0.82 10^3/uL (0.30-0.80) H 03/20/18 02:00 Absolute Eos (auto) 0.23 10^3/uL (0.03-0.40) 03/20/18 02:00 Absolute Basos (auto) 0.03 10^3/uL (0.02-0.10) 03/20/18 02:00 Absolute Nucleated RBC 0.00 10^3/uL (0-0.01) 03/20/18 02:00 Immature Gran % 0.4 % (0.0-1.1) 03/20/18 02:00 Immature Gran # 0.03 10^3/uL (0.00-0.10) 03/20/18 02:00 PT 11.9 SEC (12.0-15.0) L 03/20/18 02:00 INR 0.86 (0.83-1.16) 03/20/18 02:00 APTT 27.6 SEC (23.0-38.0) 03/20/18 02:00 Sodium 141 mEq/L (135-145) 03/20/18 02:00 Potassium 4.0 mEq/L (3.5-5.2) 03/20/18 02:00 Chloride 105 mEq/L (97-110) 03/20/18 02:00 Carbon Dioxide 29 mEq/l (22-31) 03/20/18 02:00 Anion Gap 7 mEq/L (6-14) 03/20/18 02:00 BUN 23 mg/dL (7-23) 03/20/18 02:00 Creatinine 1.1 mg/dL (0.6-1.0) H 03/20/18 02:00 Estimated GFR 49 03/20/18 02:00 Glucose 89 mg/dL (70-100) 03/20/18 02:00 Calcium 9.3 mg/dL (8.5-10.4) 03/20/18 02:00 Magnesium 1.9 mg/dL (1.6-2.3) 03/20/18 02:00 Total Bilirubin 0.5 mg/dL (0.1-1.4) 03/20/18 02:00 Conjugated Bilirubin 0.2 mg/dL (0.0-0.5) 03/20/18 02:00 Unconjugated Bilirubin 0.3 mg/dL (0.0-1.1) 03/20/18 02:00 AST 28 IU/L (14-46) 03/20/18 02:00 ALT 29 IU/L (9-52) 03/20/18 02:00 Alkaline Phosphatase 152 IU/L (38-126) H 03/20/18 02:00 POC Troponin I 0.01 ng/mL (0.00-0.08) 03/20/18 02:01 NT-Pro-B Natriuret Pep 40 pg/mL (0-125) 03/20/18 02:00 Total Protein 7.0 g/dL (6.3-8.2) 03/20/18 02:00 Albumin 4.2 g/dL (3.5-5.0) 03/20/18 02:00 Lipase 216 IU/L (23-300) 03/20/18 02:00 Visualized and Interpreted Chest x-ray results: Yes Chest X-Ray results: no infiltrate Visualized and Interpreted EKG results: Yes EKG Interpretation: Positive for: normal sinsus rhythm, Q waves (Inferior leads) Assessment & Plan Assessment: 72 yo F w/ depression and anxiety presents with chest pain. Plan: 1. Chest pain - Acute onset around 10 PM (03/19) while at rest. The pain did start 2 hours after eating a burrito so GI is a possibility. She has no personal CAD history but age and family history are significant risk factors. HEART score of 4 denotes need for further evaluation. D-dimer is negative. - Admit to PCU for observation - Monitor on telemetry, trend cardiac enzymes - Trial GI cocktail - Will order exercise stress test for the morning 2. SHABBIR - Serum creatinine 1.1 on admission increased from normal baseline. - S/p 1 L IVF - Monitor BMP 3. Depression, anxiety - Continue home medications pending reconciliation Diet - NPO pending work-up Code - Full Ppx - LMWH Dispo - Admit under observation status
[2018-03-20] MEDS ORDERED: KETOROLAC 15 MG/1 ML SDV IVP ONE (07:39)
[2018-03-20] MEDS ORDERED: ENOXAPARIN 30 MG/0.3 ML SYR SC SCH (09:00)
--- NOTE | 2018-03-20 10:00 | CPEKG ---
Test Reason : OPEN Blood Pressure : / mmHG Vent. Rate : 071 BPM Atrial Rate : 072 BPM P-R Int : 176 ms QRS Dur : 083 ms QT Int : 417 ms P-R-T Axes : 044 073 044 degrees QTc Int : 454 ms Sinus rhythm Minimal ST depression, inferior leads Confirmed by James Zapata ([id number]) on 03/20/2018 9:59:47 AM Referred By: Yazan Mendieta Confirmed By:James Zapata
[2018-03-20] MEDS: ONDANSETRON DISINTEGRATING 4 MG TAB PO PRN ×2 (12:04→16:04)
[2018-03-20] MEDS ORDERED: CITALOPRAM 20 MG TAB PO SCH (12:30)
[2018-03-20] MEDS ORDERED: REGADENOSON 0.4 MG/5 ML SYR IVP ONE (14:21)
--- NOTE | 2018-03-20 15:21 | CPR ---
[f rep st] NONINVASIVE CARDIAC PROCEDURE REPORT DATE OF PROCEDURE: 03/20/2018 PROCEDURE: Lexiscan nuclear stress test. INDICATION: The patient is a 72-year-old female who presented to the hospital with sudden onset of c hest discomfort and shortness of breath. She describes it as a pressure on her chest, which has been persistent since last night. She had a GI cocktail and Toradol without any improvement in her sympt oms. Her risk factors for coronary artery disease include a family history. She states that both he r father and mother had cardiac issues beginning in their 30s. She denies any history of hypertensio n, hyperlipidemia, diabetes, or ongoing tobacco use. PROCEDURE IN DETAIL: Consent was obtained. The patient was placed on continuous telemetry. Her res ting EKG reveals normal sinus rhythm with a heart rate of 64, ND interval 173, QRS duration of 84, an d a QTc of 459. She has nonspecific ST-T wave changes specifically in the inferior and lateral leads . The patient was infused with Lexiscan and complained of chest pressure. She remained in normal si nus rhythm with nonspecific ST-T wave changes. Her symptoms resolved 4 minutes into recovery. Her b lood pressure at rest was 114/58 and remained stable throughout the procedure. PLAN: Await nuclear images. /[id number]/MODL
[2018-03-20 15:55] VITALS: BP 124/59
--- NOTE | 2018-03-20 16:37 | PDDCSUM ---
Discharge Summary Discharge Summary: Date of Admission: 03/20/2018 Date of Discharge: 03/20/2018 Studies: 1. CXR 2. Lexiscan stress with NM Discharge Diagnoses: 1. Non-cardiac chest pain 2. SHABBIR, resolved 3. Depression, anxiety Brief Hospital Course: 72yo F with history of depression and anxiety presented with acute onset left sided chest pain at rest. Serial ECG and troponins as well as d-dimer were negative. A lexiscan stress with NM was negative for ischemia or infarction; estimated LVEF normal without wall motion abnormality. CXR without acute process. Her chest was tender to palpation and ultimately I believe her symptoms are related to costochondritis vs muscle strain. I advised her to trial anti-inflammatories. Medications: Please refer to EMR. No changes were made. Follow Up Plan: 1. To see PCP Physical Exam: Vitals and telemetry reviewed, no arrhythmias. Alert and oriented , rrr without m/r/g, lungs clear, abdomen soft, no leg edema, no JVD, tenderness to palpation across left chest without rash.
[2018-03-20] MEDS ORDERED: DONEPEZIL HCL 5 MG TAB PO SCH (21:00)
[2018-03-20] MEDS ORDERED: AMITRIPTYLINE HCL 25 MG TAB PO SCH (21:00)
--- NOTE | 2018-03-21 06:41 | CPEKG ---
Test Reason : OPEN Blood Pressure : / mmHG Vent. Rate : 069 BPM Atrial Rate : 069 BPM P-R Int : 174 ms QRS Dur : 088 ms QT Int : 414 ms P-R-T Axes : 033 079 022 degrees QTc Int : 444 ms Sinus rhythm Minimal ST depression, diffuse leads Confirmed by Grover Malone ([id number]) on 03/21/2018 6:40:41 AM Referred By: PHYSICIAN ED Confirmed By:Grover Malone
--- NOTE | 2018-03-21 06:41 | CPEKG ---
Test Reason : OPEN Blood Pressure : / mmHG Vent. Rate : 073 BPM Atrial Rate : 072 BPM P-R Int : 178 ms QRS Dur : 088 ms QT Int : 423 ms P-R-T Axes : 046 076 033 degrees QTc Int : 467 ms Sinus rhythm Minimal ST depression, diffuse leads Confirmed by Grover Malone ([id number]) on 03/21/2018 6:40:49 AM Referred By: Grover Malone Confirmed By:Grover Malone
[2018-03-21] MEDS ORDERED: ASPIRIN 81 MG CHEWABLE TAB PO SCH (09:00)
[2018-03-21] MEDS ORDERED: ENOXAPARIN 40 MG/0.4 ML SYR SC SCH (09:00)
== END 2018-03-20 18:00 | disposition home or self-care (01) ==
LOC: F2N 03:38
PROVIDERS: ADMIT Student in an Organized Health Care Education/Training Program; ATTEND Internal Medicine
DX: R07.89 Other chest pain (principal); N17.9 Acute kidney failure, unspecified; F41.8 Other specified anxiety disorders; M54.5 Low back pain; Z88.0 Allergy status to penicillin; E86.0 Dehydration
CPT/HCPCS: 71045; 78452; 93005; 96361; 96372; 96374; 96375; 99285; A9500; G0378; J1650; J1885; J2270; J2405; J2785; 84484-ER

== ENCOUNTER 2018-05-15 12:20 | Inpatient (IN) | payer OTHER ==
[2018-05-15] MEDS ORDERED: ACETAMINOPHEN 500 MG TAB PO ONE (12:34)
[2018-05-15] MEDS ORDERED: ONDANSETRON 4 MG/2 ML VIAL IVP ONE (13:06)
[2018-05-15] MEDS ORDERED: NS 1,000 ML IV ONE (13:06)
[2018-05-15 13:09] LABS: PLATELET COUNT 241 10^3/uL (150-400)
--- NOTE | 2018-05-15 13:10 | EDPHY ---
H & P Stated Complaint: chest pain, "feels like someones sitting on my chest", cough, fever Time Seen by Provider: 05/15/18 12:57 HPI/ROS: CHIEF COMPLAINT: Cough, fever HISTORY OF PRESENT ILLNESS: 72-year-old female with asthma presents with cough and fever. Onset of cough, fever and chills yesterday evening. Unable to sleep last night because of persistent cough and chills. She awoke this morning with myalgias, nausea and persistent productive cough. Associated with exertional shortness of breath and generalized weakness. No oral intake this morning because of nausea. No vomiting. Also has moderate chest pain with coughing. Received a flu vaccination this year. REVIEW OF SYSTEMS: complete 10 point ROS reviewed and is negative except for the noted elements in the HPI - Personal History Current Tetanus/Diphtheria Vaccine: Yes Current Tetanus Diphtheria and Acellular Pertussis (TDAP): Yes Tetanus Vaccine Date: 2014 - Medical/Surgical History Hx Asthma: No Hx Chronic Respiratory Disease: Yes Hx Diabetes: No Hx Cardiac Disease: No Hx Renal Disease: No Hx Cirrhosis: No Hx Alcoholism: No Hx HIV/AIDS: No Hx Splenectomy or Spleen Trauma: No Other PMH: hx meningitis x3 (last 1999), degenerative arthritis with chronic leg and back pain/PLEURISY, vertigo - Social History Smoking Status: Former smoker Alcohol Use: Sober Drug Use: None Additional Social History: Lives with son - Physical Exam Exam: General Appearance: Alert, pleasant, nontoxic-appearing Eyes: Pupils equal and round, no conjunctival pallor or injection ENT, Mouth: Mucous membranes moist Neck: Normal inspection Respiratory: Wheezing at the left base Cardiovascular: Regular tachycardia Gastrointestinal: Abdomen is soft and nontender Neurological: A&O, nonfocal exam Skin: Warm and dry Extremities: Normal inspection Psychiatric: Mood and affect normal Constitutional: Initial Vital Signs Temperature (C) 38.1 C 05/15/18 12:27 Heart Rate 119 H 05/15/18 12:27 Respiratory Rate 20 05/15/18 12:27 O2 Sat (%) 90 L 05/15/18 12:27 O2 Delivery Mode Nasal Cannula O2 (L/minute) 2 Allergies/Adverse Reactions: Penicillins Allergy (Intermediate, Verified 05/15/18 12:29) Other-Enter Comments Home Medications: Medication Instructions Recorded Aspirin [Aspirin 81mg (*)] 81 mg PO HS 10/14/13 Amitriptyline HCl [Elavil] 25 mg PO HS 03/20/18 Citalopram [CeleXA 20 MG] 20 mg PO HS 03/20/18 Donepezil HCl [Aricept 5 MG (*)] 5 mg PO HS 03/20/18 Medical Decision Making - Diagnostics EKG Interpretation: EKG interpreted by me reveals sinus tachycardia, rate 128, diffuse ST segment depression. Interpretation: Abnormal EKG Imaging Results: Imaging Impressions Chest X-Ray 05/15/18 13:00 Impression: Normal chest x-ray. Chest x-ray and really reviewed by me reveals no acute disease. Imaging: I viewed and interpreted images myself ED Course/Re-evaluation: This pt presents with flu-like sx and borderline O2 sat. IV NS 1 liter, Tylenol and a duoneb given. Stat EKG reveals no evidence of ischemia or dysrhythmia. Chest x-ray is unremarkable. 1540: feels much better after duoneb, IVF and fever reduction. Chest tightness has resolved. Ambulated throughout the emergency department and oxygen saturation was 86% on room air, patient felt dyspnea. Chest exam is clear to auscultation. Will admit for acute bronchitis and hypoxia. Meets SIRS criteria , initial lactate is normal. Solu-Medrol 125 mg IV given. Blood cultures were drawn and Rocephin and Zithromax IV given. Differential Diagnosis: Differential diagnosis includes pyelonephritis, cholecystitis, influenza, cellulitis, pneumonia, abscess, meningitis. - Data Points Laboratory Results: Laboratory Results 05/15/18 12:40 05/15/18 12:40 05/15/18 05/15/18 05/15/18 13:20 13:11 12:40 WBC RBC Hgb Hct MCV MCH MCHC RDW Plt Count MPV Neut % (Auto) Lymph % (Auto) [place] % (Auto) Eos % (Auto) Baso % (Auto) Nucleat RBC Rel Count Absolute Neuts (auto) Absolute Lymphs (auto) Absolute Monos (auto) Absolute Eos (auto) Absolute Basos (auto) Absolute Nucleated RBC Immature Gran % Immature Gran # VBG Lactic Acid 1.0 mmol/L mmol/L (0.7-2.1) Sodium 136 mEq/L mEq/L (135-145) Potassium 4.2 mEq/L mEq/L (3.5-5.2) Chloride 102 mEq/L mEq/L (97-110) Carbon Dioxide 24 mEq/l mEq/l (22-31) Anion Gap 10 mEq/L mEq/L (6-14) BUN 11 mg/dL mg/dL (7-23) Creatinine 0.6 mg/dL mg/dL (0.6-1.0) Estimated GFR > 60 Glucose 102 mg/dL H mg/dL (70-100) Calcium 9.1 mg/dL mg/dL (8.5-10.4) POC Troponin I 0.00 ng/mL ng/mL (0.00-0.08) Nasal Influenza A PCR Nasal Influenza B PCR RSV (PCR) 05/15/18 05/15/18 12:40 12:32 WBC 12.75 10^3/uL H 10^3/uL (3.80-9.50) RBC 4.57 10^6/uL 10^6/uL (4.18-5.33) Hgb 13.7 g/dL g/dL (12.6-16.3) Hct 40.4 % % (38.0-47.0) MCV 88.4 fL fL (81.5-99.8) MCH 30.0 pg pg (27.9-34.1) MCHC 33.9 g/dL g/dL (32.4-36.7) RDW 14.6 % % (11.5-15.2) Plt Count 241 10^3/uL 10^3/uL (150-400) MPV 10.0 fL fL (8.7-11.7) Neut % (Auto) 84.1 % H % (39.3-74.2) Lymph % (Auto) 8.1 % L % (15.0-45.0) [place] % (Auto) 6.5 % % (4.5-13.0) Eos % (Auto) 0.6 % % (0.6-7.6) Baso % (Auto) 0.2 % L % (0.3-1.7) Nucleat RBC Rel Count 0.0 % % (0.0-0.2) Absolute Neuts (auto) 10.72 10^3/uL H 10^3/uL (1.70-6.50) Absolute Lymphs (auto) 1.03 10^3/uL 10^3/uL (1.00-3.00) Absolute Monos (auto) 0.83 10^3/uL H 10^3/uL (0.30-0.80) Absolute Eos (auto) 0.08 10^3/uL 10^3/uL (0.03-0.40) Absolute Basos (auto) 0.02 10^3/uL 10^3/uL (0.02-0.10) Absolute Nucleated RBC 0.00 10^3/uL 10^3/uL (0-0.01) Immature Gran % 0.5 % % (0.0-1.1) Immature Gran # 0.07 10^3/uL 10^3/uL (0.00-0.10) VBG Lactic Acid Sodium Potassium Chloride Carbon Dioxide Anion Gap BUN Creatinine Estimated GFR Glucose Calcium POC Troponin I Nasal Influenza A PCR NEGATIVE FOR FLU A (NEGATIVE) Nasal Influenza B PCR NEGATIVE FOR FLU B (NEGATIVE) RSV (PCR) NEGATIVE FOR RSV (NEGATIVE) Medications Given: Discontinued Medications Acetaminophen (Tylenol) 1,000 mg PO EDNOW ONE Stop: 05/15/18 12:35 Last Admin: 05/15/18 12:37 Dose: 1,000 mg Albuterol/Ipratropium (Duoneb) 3 ml IH EDNOW ONE Stop: 05/15/18 13:57 Last Admin: 05/15/18 14:07 Dose: 3 ml Sodium Chloride (Ns) 1,000 mls @ 0 mls/hr IV ONCE ONE; Wide Open PRN Reason: Protocol Stop: 05/15/18 13:07 Last Admin: 05/15/18 13:18 Dose: 1,000 mls Azithromycin 500 mg/ Sodium (Chloride) 255 mls @ 255 mls/hr IV EDNOW ONE PRN Reason: Protocol Stop: 05/15/18 16:50 Last Admin: 05/15/18 16:30 Dose: 255 mls Ceftriaxone Sodium/Dextrose (Rocephin 1 Gm (Premix)) 50 mls @ 100 mls/hr IV EDNOW ONE PRN Reason: Protocol Stop: 05/15/18 16:20 Last Admin: 05/15/18 16:03 Dose: 50 mls Ketorolac Tromethamine (Toradol) 15 mg IVP EDNOW ONE Stop: 05/15/18 13:31 Last Admin: 05/15/18 14:10 Dose: 15 mg Methylprednisolone Sodium Succinate (Solu-Medrol) 125 mg IVP EDNOW ONE Stop: 05/15/18 15:53 Last Admin: 05/15/18 16:04 Dose: 125 mg Ondansetron HCl (Zofran) 4 mg IVP EDNOW ONE Stop: 05/15/18 13:07 Last Admin: 05/15/18 14:10 Dose: 4 mg Prednisone (Prednisone) 60 mg PO EDNOW ONE Stop: 05/15/18 15:48 Last Admin: 05/15/18 16:09 Dose: Not Given Point of Care Test Results: Chemistry 05/15/18 13:11 POC Troponin I 0.00 ng/mL ng/mL (0.00-0.08) Departure - Departure Disposition: Home, Routine, Self-Care Clinical Impression: Acute bronchitis Qualifiers: Bronchitis organism: unspecified organism Qualified Code(s): J20.9 - Acute bronchitis, unspecified Asthma exacerbation Qualifiers: Asthma severity: moderate Asthma persistence: unspecified Qualified Code(s): J45.901 - Unspecified asthma with (acute) exacerbation Condition: Fair
[2018-05-15] MEDS ORDERED: KETOROLAC 15 MG/1 ML SDV IVP ONE (13:30)
[2018-05-15] MEDS ORDERED: IPRATROPIUM/ALBUTEROL 3 ML DEYVIAL IH ONE (13:56)
[2018-05-15] MEDS ORDERED: predniSONE 20 MG TAB PO ONE (15:47)
[2018-05-15] MEDS ORDERED: AZITHROMYCIN IV 500 MG in NS 250 ML IV ONE (15:51)
[2018-05-15] MEDS ORDERED: methylPREDNISolone SOD SUCC 125 MG/2 ML VIAL IVP ONE (15:52)
[2018-05-15] MEDS ORDERED: ALBUTEROL 3 ML DEYVIAL IH ONE (15:52)
[2018-05-15] MEDS ORDERED: traMADol 50 MG TAB PO PRN (17:34)
[2018-05-15] MEDS ORDERED: ONDANSETRON 4 MG/2 ML VIAL IVP PRN (17:34)
[2018-05-15] MEDS ORDERED: ACETAMINOPHEN 325 MG TAB PO PRN (17:34)
[2018-05-15] MEDS ORDERED: oxyCODONE IR 5 MG TAB PO PRN (17:34)
[2018-05-15] MEDS ORDERED: KETOROLAC 30 MG/1 ML SDV IVP ONE (17:35)
[2018-05-15] MEDS ORDERED: KETOROLAC 15 MG/1 ML SDV IVP PRN (17:35)
--- NOTE | 2018-05-15 18:20 | GHP ---
[f rep st] HISTORY AND PHYSICAL CHIEF COMPLAINT: Shortness of breath. HISTORY: The patient is a 72-year-old female who got sick starting yesterday. Prior to that, she was feeling fine. She had acute onset of cough, fever, myalgias. Initially, she thought she has had a bad cold, but it progressed to chest pain and shortness of breath. Her cough is productive of green sputum. Chest pain feels like someone sitting on her chest, but it is also pleuritic worsening with cough and deep inspiration. It radiates to her back. Every time , she coughs, her headache gets worse. She has diffuse myalgia. She did not sleep at all last night. She now feels a little better after nebulizer. In the emergency room, she is 85% on room air, so being admitted. She did get a flu shot this year. PAST MEDICAL HISTORY: 1. Depression and anxiety. 2. Asthma. MEDICATIONS: Please see computerized record for full detailed list. ALLERGIES: Penicillin. SOCIAL HISTORY: She quit smoking over 40 years ago. No alcohol. She lives alone. REVIEW OF SYSTEMS: Complete review of systems obtained. Review of systems negative regarding constitutional, HEENT, GI, pulmonary, cardiovascular, , hematology, skin, musculoskeletal, endocrine, and psych, except for positives and pertinent negatives listed as in HPI. FAMILY HISTORY: Reviewed and noncontributory to presenting complaint. PHYSICAL EXAMINATION: GENERAL: Well-nourished female. She looks miserable, ill, short of breath. VITAL SIGNS: Temperature 36.7, pulse 119., blood pressure 122/74, saturating 85% on room air. HEENT: Eyes: Normal conjunctivae. Pupils reactive to light. ENT: Normal ears, nose. Hearing intact. Normal teeth. Oropharynx moist. NECK: Trachea midline. No thyromegaly. CHEST: Normal effort. LUNGS: She does have some expiratory wheezes. CARDIOVASCULAR: Regular rhythm. No murmur. No lower extremity edema. ABDOMEN: Soft, nontender. No hepatosplenomegaly. SKIN: Warm, dry, intact. No rash. MUSCULOSKELETAL: No cyanosis or clubbing. Strength 5/5 upper and lower extremities. NEURO: Cranial nerves intact. Normal sensation to light touch. PSYCH: Alert and oriented x3. Normal mood and affect. Normal judgment. Normal memory. LABORATORY/IMAGING: White count 12.75, hematocrit 40.4, platelets 241. Sodium 136, potassium 4.2, chloride 102, bicarb 24, BUN 11, creatinine 0.6, glucose 102. Troponin negative. Influenza negative. RSV negative. Lactate is 1.0. EKG viewed by me. My personal interpretation is sinus tachycardia, flattening through V4 through V6. Chest x-ray is negative. ASSESSMENT/PLAN: 1. Asthma exacerbation. Patient is hypoxic 85% on room air. We will admit to observation. Start her on oral prednisone, nebulizers. 2. Bronchitis. I suspect this is viral, but we will continue azithromycin for now. Respiratory PCR is pending. 3. Chest pain. I suspect this is pleurisy, secondary to her viral infection. We will give her a dose of Toradol. We will check serial troponins. 4. Deep venous thrombosis prophylaxis. She is high risk. Will place on subcutaneous Lovenox. CODE STATUS: Full. ADMISSION STATUS: Will admit to observation, reevaluate tomorrow. /[id number]/MODL MTDD
[2018-05-15] MEDS: IPRATROPIUM/ALBUTEROL 3 ML DEYVIAL IH SCH ×2 (18:31→23:38)
[2018-05-15] MEDS: DONEPEZIL HCL 5 MG TAB PO SCH (20:27)
[2018-05-15] MEDS: ASPIRIN 81 MG CHEWABLE TAB PO SCH (20:27)
[2018-05-15] MEDS: CITALOPRAM 20 MG TAB PO SCH (20:27)
[2018-05-15] MEDS: AMITRIPTYLINE HCL 25 MG TAB PO SCH (20:27)
[2018-05-16] MEDS: IPRATROPIUM/ALBUTEROL 3 ML DEYVIAL IH SCH ×2 (05:26→11:43)
[2018-05-16 05:31] LABS: PLATELET COUNT 218 10^3/uL (150-400)
[2018-05-16] MEDS: predniSONE 20 MG TAB PO SCH (08:39)
[2018-05-16] MEDS: ENOXAPARIN 40 MG/0.4 ML SYR SC SCH (08:39)
[2018-05-16] MEDS ORDERED: AZITHROMYCIN 250 MG TAB PO SCH (09:00)
--- NOTE | 2018-05-16 11:11 | HOSPPROG ---
Hospitalist Progress Note Assessment/Plan: 72 year old female with pmh of asthma, depression admitted with asthma exacerbation likely secondary to rhinovirus. Asthma exacerbation- still hypoxic today on room air. respiratory panel positive for rhinovirus which is likely the precipitant for her exacerbation. -cont prednisone -cont nebs -oxygen PRN -stop azithro rhinovirus- supportive care and treat asthma exacerbation as above Depression- on celexa and elavil. cont cognitive decline- patient takes aricept which should be fine to cont here. PPX- lovenox, scds Fluids- Po Lytes- WNL Nutrition-regular diet Cor- Full Dispo- remain here for hypoxia. Will change to inpatient. Subjective: still short of breath. minimal cough Objective: Vital Signs Temp Pulse Resp BP Pulse Ox 36.6 C 97 16 121/56 H 97 05/16/18 11:05 05/16/18 11:05 05/16/18 11:05 05/16/18 11:05 05/16/18 11:05 Laboratory Results 05/16/18 04:22 05/15/18 05/16/18 05/17/18 05:59 05:59 05:59 Intake Total 1450 Balance 1450 - Physical Exam Constitutional: no apparent distress, appears nourished, not in pain Eyes: PERRL, anicteric sclera, EOMI Ears, Nose, Mouth, Throat: moist mucous membranes, hearing normal, ears appear normal, no oral mucosal ulcers Cardiovascular: regular rate and rhythym, no murmur, rub, or gallop Respiratory: reduced air movement, expiratory wheeze Gastrointestinal: normoactive bowel sounds, soft, non-tender abdomen, no palpable masses Genitourinary: no bladder fullness, no bladder tenderness, no renal bruits Skin: no rashes or abrasions, no fluctuance, no induration Musculoskeletal: full muscle strength, no muscle tenderness, normal joint ROM Neurologic: AAOx3, sensation intact bilaterally Psychiatric: interacting appropriately, not anxious, not encephalopathic, thought process linear Lymph, Heme, Immunologic: no cervical LAD, no supraclavicular LAD ICD10 Worksheet Patient Problems: Problems Problem Status Onset Acute bronchitis Acute Asthma exacerbation Acute Ataxia Acute 10/13/13 Chest pressure Acute
[2018-05-16] MEDS ORDERED: IPRATROPIUM/ALBUTEROL 3 ML DEYVIAL IH PRN (16:00)
--- NOTE | 2018-05-16 16:13 | ASMTCMCOM ---
CM Note CM Note Notes: Spoke w/RN and reviewed chart, pt admitted with bronchitis. No therapies ordered, anticipate she will dc home w/support of sons when medically stable. CM available for any changes. DC Plan: Independent Date Signed: 05/16/2018 04:12 PM Electronically Signed By:Suki Linares RN
[2018-05-16] MEDS: DONEPEZIL HCL 5 MG TAB PO SCH (21:17)
[2018-05-16] MEDS: CITALOPRAM 20 MG TAB PO SCH (21:17)
[2018-05-16] MEDS: AMITRIPTYLINE HCL 25 MG TAB PO SCH (21:17)
[2018-05-16] MEDS: ASPIRIN 81 MG CHEWABLE TAB PO SCH (21:17)
[2018-05-17] MEDS: predniSONE 20 MG TAB PO SCH (08:30)
[2018-05-17] MEDS: ENOXAPARIN 40 MG/0.4 ML SYR SC SCH (08:31)
--- NOTE | 2018-05-17 14:53 | HOSPPROG ---
Hospitalist Progress Note Assessment/Plan: 72-year-old with a history of asthma is admitted with increasing shortness of breath and cough. Evaluation revealed rhino virus # acute asthma exacerbation with acute hypoxic respiratory failure and positive her respiratory panel for rhinovirus * Continue prednisone and nebulizers * Oxygen as needed * Add Singulair # depression: Currently on Celexa and Elavil will continue # cognitive decline, patient on Aricept # social: Patient lives alone but she does have a son who plans on staying with her while she is ill. Subjective: Patient new to me and chart reviewed. Continues to complain of increasing shortness breath and dyspnea on exertion with minimal exertion. Objective: Vital Signs Temp Pulse Resp BP Pulse Ox 36.5 C 80 18 138/82 H 88 L 05/17/18 11:52 05/17/18 11:52 05/17/18 11:52 05/17/18 11:52 05/17/18 11:52 Laboratory Results 05/16/18 04:22 05/16/18 05/17/18 05/18/18 05:59 05:59 05:59 Intake Total 1450 1400 Balance 1450 1400 - Physical Exam Constitutional: not in pain Eyes: PERRL Ears, Nose, Mouth, Throat: moist mucous membranes Cardiovascular: regular rate and rhythym Respiratory: reduced air movement, expiratory wheeze, respiratory distress Gastrointestinal: normoactive bowel sounds, soft, non-tender abdomen Genitourinary: no bladder fullness Skin: warm Neurologic: AAOx3 Psychiatric: interacting appropriately ICD10 Worksheet Patient Problems: Problems Problem Status Onset Ataxia Acute 10/13/13 Chest pressure Acute Acute bronchitis Acute Asthma exacerbation Acute
[2018-05-17] MEDS: IPRATROPIUM/ALBUTEROL 3 ML DEYVIAL IH PRN ×2 (15:16→21:38)
--- NOTE | 2018-05-17 17:09 | PDMN ---
Medical Necessity Medical necessity: MCG: M60 asthma A-1 day: 72 yr old with acute asthma exacerbation with acute hypoxic resp failure and + rhinovirus- increasing SOB and dyspnea on exertion with minimal exertion - reduced air movement, exp. wheezing- O2 sats dip down to 88% RA status changed to INPT 05/17/18 for further monitoring > 2 MN.
[2018-05-17] MEDS ORDERED: MONTELUKAST SODIUM 10 MG TAB PO SCH (18:00)
[2018-05-17] MEDS: ASPIRIN 81 MG CHEWABLE TAB PO SCH (20:45)
[2018-05-17] MEDS: DONEPEZIL HCL 5 MG TAB PO SCH (20:45)
[2018-05-17] MEDS: AMITRIPTYLINE HCL 25 MG TAB PO SCH (20:45)
[2018-05-17] MEDS: CITALOPRAM 20 MG TAB PO SCH (20:45)
[2018-05-18] MEDS: IPRATROPIUM/ALBUTEROL 3 ML DEYVIAL IH PRN ×3 (04:00→10:09)
[2018-05-18] MEDS: ENOXAPARIN 40 MG/0.4 ML SYR SC SCH (07:49)
[2018-05-18] MEDS: predniSONE 20 MG TAB PO SCH (07:49)
[2018-05-18 08:10] VITALS: BP 126/58
--- NOTE | 2018-05-18 11:29 | ASMTLACE ---
ARVIN Length of stay for Answers: 3 days current admission Acuity / Level of Answers: Yes Care: Did the patient have an inpatient admission? Comorbidities - select Answers: Opioid dependence all that apply / Chronic pain Other Notes: asthma # of Emergency department Answers: 3-4 visits in the last 6 months Social determinants Answers: Mental health diagnosis (anxiety, depression, pers onality disorders, etc.) Score: 17 Date Signed: 05/18/2018 09:57 AM Electronically Signed By:Maria Luisa Weber
--- NOTE | 2018-05-18 11:33 | ASDISCHSUM ---
Discharge Information Plan Status:Home with No Needs Medically Cleared to Leave:05/18/2018 Discharge Date:05/18/2018 CM D/C Disposition:Home, Routine, Self-Care ADT D/C Disposition:Home, Routine, Self-Care Projected Discharge Date:05/18/2018 Transportation at D/C:Family Discharge Delay Reason: Follow-Up Date:05/18/2018 Discharge Slot: Final Diagnosis:bronchitis, asthma exacerbation Placement Information Patient Contact Information Contact Name:GENESIS Relationship:Bob Address: City:[facility] Alternate Phone: [facility]/Zip Code:[place] Email: Financial Information Financial Class:Medicare Advantage Plans Primary Plan Desc:[facility] ADV[employer]AGE PLANS Primary Plan Number:[id number] Secondary Plan Desc: Secondary Plan Number: Assessment Information LACE LACE Length of stay for Answers: 3 days current admission Acuity / Level of Answers: Yes Care: Did the patient have an inpatient admission? Comorbidities - select Answers: Opioid dependence all that apply / Chronic pain Other Notes: asthma # of Emergency department Answers: 3-4 visits in the last 6 months Social determinants Answers: Mental health diagnosis (anxiety, depression, pers onality disorders, etc.) Score: 17 Date Signed: 05/18/2018 09:57 AM Electronically Signed By:Maria Luisa Weber [facility] CM Progress Note CM Note CM Note Notes: Spoke w/RN and reviewed chart, pt admitted with bronchitis. No therapies ordered, anticipate she will dc home w/support of sons when medically stable. CM available for any changes. DC Plan: Independent Date Signed: 05/16/2018 04:12 PM Electronically Signed By:Suki Linares RN Case Management Discharge Plan Note Case Management Discharge Discharge Order Complete? Answers: Yes Patient to Obtain Answers: via Family Medications Transportation Arranged Answers: Family/Friends Transport will Pick (Date 05/18/2018 12:00 AM & Time) Family Notified Answers: Yes Notes: by pat Discharge Comments Notes: Spoke with pt in the room and with RN. Pt to discharge independently with support from son who will stay with her while she is ill. No CM needs noted at this time. CM available should needs change. Date Signed: 05/18/2018 10:13 AM Electronically Signed By:Mraia Luisa Weber Intervention Information Intervention Type:*IM-Signed Date of Service:05/18/2018 10:12 AM Patient Type:Inpatient Staff Member:Maria Luisa Weber Hours: Discipline:Surfacer Severity: Comment:
--- NOTE | 2018-05-18 15:42 | GDS ---
[f rep st] DISCHARGE SUMMARY DIAGNOSES: 1. Acute asthma exacerbation with acute hypoxic respiratory failure secondary to rhinovirus. 2. Depression. 3. Cognitive decline on Aricept. HOSPITAL COURSE: The patient is a very nice 72-year-old with a history of asthma who comes in with i ncreasing shortness of breath and cough. Evaluation included a respiratory panel, which revealed rhi novirus. She was treated with prednisone and nebulizers, and over the course of her hospitalization she improved. Singulair was added as well and did have an affect on her breathing, so she will roderick nue that for the next few weeks. On followup, if she does well she can have that discontinued by her primary care provider or to be used as needed when her allergies worsen. CONDITION ON DISCHARGE: Good. Vital signs are stable. She is 94% on room air. Heart rate is 82, b lood pressure is stable. DISCHARGE MEDICATIONS: Please see discharge medication form. She will be placed on a prednisone tap er, Singulair daily, as well as a Ventolin inhaler. Total time spent with patient on day of discharge and coordination of care is 35 minutes. /[id number]/MODL
--- NOTE | 2018-05-18 22:48 | CPEKG ---
Test Reason : OPEN Blood Pressure : / mmHG Vent. Rate : 120 BPM Atrial Rate : 121 BPM P-R Int : 148 ms QRS Dur : 083 ms QT Int : 288 ms P-R-T Axes : 071 086 -67 degrees QTc Int : 407 ms Sinus tachycardia Borderline right axis deviation Repol abnrm suggests ischemia, diffuse leads Confirmed by Elieser Rios ([id number] on 05/18/2018 10:47:54 PM Referred By: PHYSICIAN ED Confirmed By:Elieser Rios
== END 2018-05-18 11:07 | disposition home or self-care (01) | DRG 202 ==
LOC: F3E 17:56 → OBSVTOIN 05-17 14:54
PROVIDERS: ADMIT Internal Medicine; ATTEND Internal Medicine
DX: J45.901 Unspecified asthma with (acute) exacerbation (principal); J96.01 Acute respiratory failure with hypoxia; B34.8 Other viral infections of unspecified site; G31.84 Mild cognitive impairment of uncertain or unknown etiology; Z87.891 Personal history of nicotine dependence; F32.9 Major depressive disorder, single episode, unspecified
CPT/HCPCS: 84484-ER; 96365; G0378; J0456; J0696; J1650; J1885; J2405; J2930; J7512

== ENCOUNTER → 2018-07-03 | Outpatient (CLI) | payer OTHER | LOC: FIMAGING 07:56 | PROVIDERS: ATTEND Family Medicine | DX: Z12.31 Encounter for screening mammogram for malignant neoplasm of breast (principal) ==